=== PATIENT | male | born 1960 | race Caucasian/White ===

== ENCOUNTER 2020-04-21 17:28 | Inpatient (IN) | payer OTHER ==
[~2020-04-21] VITALS: Ht 172.7 cm; Wt 57.2 kg
[2020-04-21 17:41] VITALS: BP_SYST 105
--- NOTE | 2020-04-21 17:41 | NUR ---
Placed in room 04 . Placed on cardiac cath lab manager, blood pressure machine and pulse oximeter. To gown for exam. Side rails up.
--- NOTE | 2020-04-21 17:45 | NUR ---
Note jostintrini in ED - 04/21/20 at 1825 by AIDEWANiraj Pt bib EMS from home with c/o abdominal pain, n/v x2 days. Denies fever at this time. Currently resting in bed, will continue to monitor.
--- NOTE | 2020-04-21 17:50 | NUR ---
# 20 gauge angiocath placed to RAC. Use of asceptic technique. Opsite placed over site. Blood return noted. Blood for lab drawn from site. Flushed with 10 cc of normal saline. No evidence of infiltration noted. Patient tolerated well.
--- NOTE | 2020-04-21 17:50 | NUR ---
PT. BETHANY AAOx3 CC DIZZINESS AND SHORTNESS OF BREATH SINCE 08OOHRS BECAME WORSE SO HE CALLED 911 PT. STATES HE FEELS LIKE HE CANNOT CATCH HIS BREATH AND HAS POOR BALANCE SINCE AM PT. HAS NKDA WITH A HISTORY OF COLON CANCER. PT. IS ACTIVELY WORKING TO BREATH OTHERWISE PULSE OX IS 99% ON ROOM AIR AND LUNGS SOUND CLEAR WITH AUDIBLE EXPITORY WHEEZES.
[2020-04-21 18:23] LABS: CALCIUM 9.4 mg/dL (8.4-11.0); CREATININE 6.06 mg/dL (0.55-1.30)
[2020-04-21 18:29] LABS: ALBUMIN 3.5 g/dL (3.4-4.8); TOTAL BILIRUBIN 1.8 mg/dL (0.0-1.0)
[2020-04-21 18:37] LABS: POTASSIUM 6.2 mmol/L (3.5-5.1)
[2020-04-21 18:48] LABS: HEMOGLOBIN 12.9 g/dL (14.0-18.0); MEAN CORPUSCULAR VOLUME 97 fL (79.0-98.0); RED BLOOD CELL COUNT(AUTO) 4.22 MIL/uL (4.2-6.2); WHITE BLOOD COUNT (AUTO) 8.1 K/uL (4.8-10.8)
[2020-04-21 18:49] LABS: BASOPHILS % (AUTO) 0.1 % (0.0-2.0); LYMPHOCYTES % (AUTO) 7.7 % (20.5-51.5); MEAN CORPUSCULAR HEMOGLOBIN 31 pg (27-31); MEAN CORPUSCULAR HGB CONC 32 % (32-36); MONOCYTES % (AUTO) 14.4 % (1.7-9.3); NEUTROPHILS % (AUTO) 77.8 % (40.0-70.0); PLATELET COUNT (AUTO) 243 K/uL (130-430); RED CELL DISTRIBUTION WIDTH 32.5 % (9.0-15.0)
[2020-04-21 18:50] LABS: LYMPHOCYTES # (AUTO) 0.6 K/uL (1.0-5.5); MONOCYTES # (AUTO) 1.2 K/uL (0.0-1.0); NEUTROPHILS # (AUTO) 6.3 K/uL (1.8-7.7)
--- NOTE | 2020-04-21 19:02 | NUR ---
Care of patient endorsed to REYES Coates. Pt currently resting in bed, no distress noted.
--- NOTE | 2020-04-21 19:15 | NUR ---
Report given by Teresa CHAMBERS, continuation of care endoresed.
--- NOTE | 2020-04-21 19:20 | NUR ---
Upon auscultation pt has b/l crackles. RT called for tx.
[2020-04-21] MEDS ORDERED: FUROSEMIDE 40 MG/4 ML VIAL IVP ONE (19:45)
[2020-04-21] MEDS ORDERED: ALBUTEROL SULFATE 0.083% 2.5 MG/3 ML VIAL.NEB INH ONE (19:45)
[2020-04-21] MEDS ORDERED: DEXTROSE 50% JECT 50 ML DISP.SYRIN IVP ONE (19:45)
[2020-04-21] MEDS ORDERED: INSULIN Lispro 100 UNITS/ML VIAL (humaLOG) IV ONE (19:45)
--- NOTE | 2020-04-21 20:18 | NUR ---
5 UNITS INSULIN GIVEN IV PUSH WITH NORMAL SALINE PT. TOLERATED WELL
--- NOTE | 2020-04-21 21:05 | NUR ---
Tushar lozoya in ED - 04/21/20 at 2359 by [id number] BG 205. made aware.
--- NOTE | 2020-04-21 21:05 | NUR ---
BG 250. AWARE
[2020-04-21] MEDS ORDERED: NACL 0.9% 1,000 ML IV ONE (21:30)
[2020-04-21] MEDS ORDERED: cefTRIAXone 1 GM in D5W 50 ML IV ONE (22:00)
[2020-04-21] MEDS ORDERED: metroNIDAZOLE 500 mg/NS 100 ML IV ONE (22:00)
--- NOTE | 2020-04-21 22:00 | NUR ---
Patient transported to radiology via [facility] for ct scan, accompanied by Leeroy.
--- NOTE | 2020-04-21 22:20 | NUR ---
Pt back from CT. Stable.
[2020-04-21] MEDS ORDERED: cefTRIAXone 1 GM VIAL ONE (23:44)
[2020-04-22] VITALS (17 sets, daily range): BP systolic 59–139
[2020-04-22 01:11] LABS: ALANINE AMINOTRANSFERASE 33 U/L (12-78); ALBUMIN 2.9 g/dL (3.4-4.8); ANION GAP 21 (5-15); ASPARTATE AMINOTRANSFERASE 25 U/L (10-37); CALCIUM 8.7 mg/dL (8.4-11.0); CHLORIDE 114 mmol/L (98-107); CREATININE 6.12 mg/dL (0.55-1.30); GLUCOSE 182 mg/dL (70-99); LACTATE DEHYDROGENASE 221 U/L (85-227); POTASSIUM 5.3 mmol/L (3.5-5.1); SODIUM SERUM 140 mmol/L (136-145); TOTAL BILIRUBIN 1.6 mg/dL (0.0-1.0); UREA NITROGEN, BLOOD 57 mg/dL (8-21)
[2020-04-22 01:17] LABS: GFR AFRICAN AMERICAN 12 mL/min (>90)
--- NOTE | 2020-04-22 01:30 | NUR ---
Pt moved to hospital bed.
--- NOTE | 2020-04-22 01:46 | NUR ---
RECEIVED ADMIT ORDERS FROM DR. FOY.
--- NOTE | 2020-04-22 01:46 | NUR ---
Patient will be admitted to care of Dr Martinez. Admitted to ICU unit. Will go to room 127. Belongings list completed. Complete and up to date summary report printed. SBAR report to be given at bedside with opportunity for questions.
--- NOTE | 2020-04-22 01:52 | NUR ---
CRITICAL LAB REPORTING - LACTIC ACID 7.4. AWARE.
[2020-04-22] MEDS ORDERED: MORPHINE 2 MG/ML INJ. SYRINGE IVP PRN (02:00)
[2020-04-22] MEDS ORDERED: ONDANSETRON HCL 4 MG/2 ML VIAL IVP PRN (02:00)
--- NOTE | 2020-04-22 02:07 | NUR ---
RECEIVED ORDERS FROM DR. MCCALL, NEPHROLOGY.
--- NOTE | 2020-04-22 02:10 | NUR ---
# 16 FR Kay catheter with use of sterile technique. Immediate return of 30 cc yellow urine noted. Bedside drainage bag placed below level of bladder. Urine sample collected and sent to lab. Pt tolerated procedure well.
[2020-04-22] MEDS ORDERED: SODIUM POLYSTYRENE SULFONATE 15 GM/60 ML UDBTL PO ONE (02:15)
[2020-04-22] MEDS ORDERED: SODIUM BICARBONATE 8.4% JECT 50 MEQ/50 ML SYRINGE IVP ONE (02:15)
--- NOTE | 2020-04-22 02:18 | NUR ---
CRITICAL LAB REPORTING - LACTIC 7.7. AWARE.
[2020-04-22] MEDS ORDERED: SODIUM BICARBONATE 8.4% JECT 50 MEQ/50 ML SYRINGE ONE (02:20)
--- NOTE | 2020-04-22 02:20 | NUR ---
# 20 gauge angiocath placed to R bicep. Use of asceptic technique. Opsite placed over site. Blood return noted. Flushed with 10 cc of normal saline. No evidence of infiltration noted. Patient tolerated well.
[2020-04-22] MEDS ORDERED: SODIUM BICARBONATE 8.4% VIAL 50 MEQ/50 ML VIAL ONE (02:21)
--- NOTE | 2020-04-22 02:23 | NUR ---
CALLED TO INFORM ICU STAFF OF ADMISSION TO ICU. PATIENT WILL BE HELD IN ER FOR TIME BEING.
[2020-04-22] MEDS: SODIUM BICARBONATE 8.4% JECT 100 MEQ in D5W 1,000 ML IVP SCH ×6 (03:00→21:09)
[2020-04-22 03:33] LABS: THYROID STIMULATING HORMONE 0.29 uIu/mL (0.34-4.82)
[2020-04-22 03:37] LABS: BILIRUBIN,URINE NEGATIVE (NEGATIVE); CLARITY/URINE CLEAR (CLEAR); COLOR,URINE YELLOW (YELLOW); GLUCOSE,URINE NEGATIVE (NEGATIVE); KETONES,URINE NEGATIVE (NEGATIVE); LEUKOCYTE ESTERASE ,URINE NEGATIVE (NEGATIVE); NITRITE, URINE NEGATIVE (NEGATIVE); PROTEIN URINE 2+ (NEGATIVE); UROBILINOGEN,URINE 0.2 (0.2-1.0)
[2020-04-22 03:46] LABS: BLOOD, URINE TRACE (NEGATIVE)
[2020-04-22 03:47] LABS: BACTERIA,URINE MODERATE /HPF (None Seen); WBC,URINE 0-3 /HPF (0-3)
--- NOTE | 2020-04-22 04:00 | NUR ---
Pt is becoing hypotenive Dr Aguilar aware. Levophed will be intiated.
[2020-04-22] MEDS ORDERED: NOREPINEPHRINE 4 MG/4 ML VIAL IV ONE (04:08)
[2020-04-22] MEDS ORDERED: VANCOMYCIN HCL 500 MG in NS 100 ML IV ONE (04:15)
[2020-04-22] MEDS ORDERED: VANCOMYCIN HCL 1 GM/NS PREMIX 250 ML IV ONE (04:15)
[2020-04-22] MEDS ORDERED: PIPERACILLIN/TAZO 3.375/DEX-IS 50 ML IV ONE (04:15)
--- NOTE | 2020-04-22 04:20 | NUR ---
Levophed started at dose 0.10 mcg. Will continue to monitor BP.
[2020-04-22] MEDS: NOREPINEPHRINE BITARTRATE 4 MG in NS 246 ML IV PRN ×3 (04:25→19:48)
[2020-04-22] MEDS: NACL 0.9% 1,000 ML IV SCH ×3 (04:45→19:43)
[2020-04-22] MEDS ORDERED: PIPERACILLIN/TAZOBACTAM 3.375 GM/VIAL (ZOSYN) IV ONE (05:32)
--- NOTE | 2020-04-22 05:40 | NUR ---
Dr Aguilar spoke to Dr Diaz to discuss Kenton catheter placement. Dr Diaz expected at ER at 0730.
--- NOTE | 2020-04-22 06:02 | NUR ---
Levophed titrated to 7.0763 mcg.
[2020-04-22] MEDS ORDERED: VANCOMYCIN HCL 500 MG/VIAL IV ONE (06:15)
--- NOTE | 2020-04-22 06:44 | NUR ---
Sodium bicarb 100 MEQ will be endorsed by ICU patient.
--- NOTE | 2020-04-22 07:00 | NUR ---
Vancomycin order endorsed to TECHNICAL SOLUTIONS CONSULTANT
[2020-04-22 07:12] LABS: CALCIUM 8.2 mg/dL (8.4-11.0); CREATININE 6.47 mg/dL (0.55-1.30); POTASSIUM 3.7 mmol/L (3.5-5.1)
[2020-04-22 07:27] LABS: URIC ACID 6.2 mg/dL (2.4-7.0)
[2020-04-22 07:28] LABS: FREE T4 (FREE THYROXINE) 0.8 ng/dL (0.6-1.6)
--- NOTE | 2020-04-22 07:30 | NUR ---
ADMISSION. RECEIVED PT IN OVERFLOW ROOM, 127-B. PT VERBALLY RESPONSIVE TO SIMPLE COMMANDS, GENERALIZED WEAKNESS NOTED, IV IN RIGHT UPPER ARM AND SALINE LOCK IN RIGHT A/C, LEVOPHED DRIP AT 8 MCG/MIN, HOLM CATHETER INTACT WITH SCANTY URINE IN THE TUBING NOTED.
--- NOTE | 2020-04-22 08:00 | NUR ---
IV DRIPS. IV PUMP REPROGRAMMED INTO LEVOPHED DRIP AT 0.03 MCG/KG/MIN AND TITRATED PRN.
[2020-04-22] MEDS ORDERED: HEPARIN SODIUM,PORCINE 5,000 UNITS/ML VIAL ONE ×2 (08:17→21:08)
--- NOTE | 2020-04-22 08:30 | NUR ---
TIME OUT DR BARRAZA AT BEDSIDE, PROCEDURE EXPLAINED TO PT, IDENTIFIED PT VIA ID BAND AND BY VERBAL STATEMENT.
[2020-04-22 08:31] LABS: INR 1.8 (0.80-1.20); PROTHROMBIN TIME 17.9 SECS (9.5-12.5)
--- NOTE | 2020-04-22 08:50 | NUR ---
Dr. Pitts at bedside for Kenton Catheter placement.
--- NOTE | 2020-04-22 09:00 | NUR ---
HD ACCESS. NEW DIALYSIS ACCES IN RIGHT SUBCLAVIANJUAN SIZE 12.5 CATHETER. Addendum: 04/22/20 at 1506 by Noy Branch RN IN RIGHT JUGULAR, NOT IN SUBCLAVIAN
--- NOTE | 2020-04-22 09:15 | NUR ---
Called Dr. Grider with a consult, spoke with Shirley from doctors office
--- NOTE | 2020-04-22 10:56 | NUR ---
G.I. CONSULT. DR ROGERS AT BEDSIDE EXAMINING PT.
--- NOTE | 2020-04-22 11:30 | NUR ---
CONSENT. BROUGHT PAPER FOR PT TO SIGN, PT TOO WEAK TO HOLD HIS PEN, HE AGREED ON DIALYSIS TREATMENT, ANOTHER RN AT BEDSIDE TO VERIFY CONVERSATION.
--- NOTE | 2020-04-22 12:10 | NUR ---
FAMILY. PT'S TAVO CALLED, UPDATED HER ON PT'S STATUS AND HIS TREATMENT, DIALYSIS AND IV MEDS.
--- NOTE | 2020-04-22 13:40 | NUR ---
TO ROOM 6 TRANSFERRED PT TO ICU 6 WITH ALL HIS PERSONAL BELONGINGS.
--- NOTE | 2020-04-22 14:02 | NUR ---
Spoke w/ traffic rate analyst at [facility] is authorized until 04/23-requested clinical info in the AM
[2020-04-22] MEDS ORDERED: cefTRIAXone 1 GM in D5W 50 ML IV SCH (15:00)
[2020-04-22 15:45] LABS: AMYLASE 629 U/L (0-100)
[2020-04-22 16:31] LABS: LIPASE 2405 U/L (73-393)
[2020-04-22] MEDS ORDERED: PIPERACILLIN/TAZO 2.25G/DEX-IS 50 ML IV ONE (17:30)
--- NOTE | 2020-04-22 19:30 | NUR ---
OPENING NOTE Received SBAR report from off coming RN for continuity of care. Pt laying in bed asleep, no s/s of acute distress noted. Pt opens eyes to verbal stimuli and can follow simple commands. Pt lethargic. Pt on RA. web site project manager at bedside providing HD. Levophed gtt infusing @ 0.34 mcg/kg/min, NS @ 125 ml/hr, 100 mEq Na bicarb @ 100 ml/hr. R) IJ vivek cath in place. Kay catheter in place and draining to gravity. Turned and repositioned pt. Bed locked and in lowest position, safety precautions in place.
[2020-04-22] MEDS ORDERED: ALBUMIN HUMAN 25% 200 ML IV ONE ×2 (20:00→20:20)
[2020-04-23] VITALS (24 sets, daily range): BP systolic 93–153
[2020-04-23] MEDS: PIPERACILLIN/TAZO 2.25G/DEX-IS 50 ML IV SCH ×3 (02:00→18:02)
--- NOTE | 2020-04-23 03:00 | NUR ---
Pt remains asleep, opens eyes to verbal and tactile stimuli. Pt continues to be lethargic. Pt continues to remain on RA. Pt had a large loose BM, provided enoc care, partial bed bath and full linen change-pt tolerated well. Bed locked and in lowest position, safety precautions in place.
[2020-04-23 06:12] LABS: ALBUMIN 2.9 g/dL (3.4-4.8); CREATININE 3.54 mg/dL (0.55-1.30); PHOSPHORUS 3.5 mg/dL (2.7-4.5); TOTAL BILIRUBIN 3.5 mg/dL (0.0-1.0)
[2020-04-23] MEDS: NACL 0.9% 1,000 ML IV SCH ×3 (06:30→20:50)
[2020-04-23 06:37] LABS: BASOPHILS % (AUTO) 0.1 % (0.0-2.0); HEMATOCRIT 26.7 % (36-54); HEMOGLOBIN 8.9 g/dL (14.0-18.0); LYMPHOCYTES # (AUTO) 0.6 K/uL (1.0-5.5); LYMPHOCYTES % (AUTO) 13.5 % (20.5-51.5); MEAN CORPUSCULAR HEMOGLOBIN 30 pg (27-31); MEAN CORPUSCULAR HGB CONC 33 % (32-36); MEAN CORPUSCULAR VOLUME 90 fL (79.0-98.0); MONOCYTES # (AUTO) 0.6 K/uL (0.0-1.0); MONOCYTES % (AUTO) 13.3 % (1.7-9.3); NEUTROPHILS # (AUTO) 3.3 K/uL (1.8-7.7); NEUTROPHILS % (AUTO) 73.1 % (40.0-70.0); PLATELET COUNT (AUTO) 72 K/uL (130-430); RED BLOOD CELL COUNT(AUTO) 2.97 MIL/uL (4.2-6.2); RED CELL DISTRIBUTION WIDTH 33.7 % (9.0-15.0); WHITE BLOOD COUNT (AUTO) 4.5 K/uL (4.8-10.8)
[2020-04-23 07:15] LABS: CALCIUM 7.4 mg/dL (8.4-11.0)
[2020-04-23 07:18] LABS: POTASSIUM 2.6 mmol/L (3.5-5.1)
--- NOTE | 2020-04-23 07:25 | NUR ---
CLOSING NOTE Endorsed SBAR report to oncoming RN for continuity of care.
--- NOTE | 2020-04-23 07:30 | NUR ---
AM ASSESSMENT. PT ALERT, COTTON FACTOR AT BEDSIDE, PROBING PT'S ABDOMEN. KITCHEN AND BATH DESIGNER ON SINUS TACHYCARDIA, LEVOPHED DRIP INCREASED TO 0.25 MCG/KG/MIN, BP 83/50.CONTINUE TO MONITOR PT.
--- NOTE | 2020-04-23 08:30 | NUR ---
HYGIENE. PT COMPLETED THE ULTRASOUND. PT INCONTINENT OF BOWEL, DARK COLOR LOOSE STOOL, SOAPY WIPES USED TO PERINEAL AREA AND RINSED WITH WET WASH CLOTHS THEN PAT DRY.
[2020-04-23] MEDS ORDERED: POTASSIUM CHLORIDE 40 MEQ in NS 500 ML IV ONE (09:00)
[2020-04-23] MEDS ORDERED: POTASSIUM CHLORIDE 40 MEQ in NS 250 ML IV ONE (09:00)
--- NOTE | 2020-04-23 10:23 | NUR ---
RUDY RECEIVED A CALL FROM RETORT SETTER, UPDATE GIVEN ON HIS STATUS, HIS LAB TESTS. SHE STATED THAT THEY ARE NOT TAKING HIM TO [facility] TODAY.
--- NOTE | 2020-04-23 13:45 | NUR ---
IV DRIPS. LEVOPHED DRIP OFF AT THIS HOUR, BLOOD PRESSURE 115/65, 111/64.
--- NOTE | 2020-04-23 14:36 | NUR ---
Per Manjit MYLES-pt not stable for transfer-on Levophed gtt-will authorize until 04/24
--- NOTE | 2020-04-23 18:00 | NUR ---
HYGIENE. PT HAD LOOSE STOOL, LARGE AMOUNT, HYGIENE PROVIDED, ALL LINEN CHANGED, MADE PT CLEAN AND DRY.
[2020-04-23] MEDS ORDERED: MAGNESIUM SULFATE 3 GM in D5W 100 ML IV SCH (18:15)
--- NOTE | 2020-04-23 19:25 | NUR ---
OPENING NOTE Received SBAR report from off coming RN for continuity of care. Pt laying in bed alert and eating dinner. No s/s of acute distress noted. NS infusing @ 100 ml/hr. Kay catheter in place, draining to gravity. Bed locked and in lowest position, safety precautions in place. Call light within reach.
--- NOTE | 2020-04-23 21:30 | NUR ---
Pt laying in bed, pt A/O x 3 and cooperative. Pt tolerated dinner (full liquid diet) well, no c/o pain, nausea or discomfort. NS infusing @ 100 ml/hr. Kay catheter in place, draining to gravity. Pt having loose BMs, provided per care and assistance. Call light within reach. Bed locked and in lowest position, safety precautions in place.
[2020-04-23] MEDS ORDERED: MAGNESIUM SULFATE 1 GM/2 ML VIAL ONE (21:40)
[2020-04-23] MEDS ORDERED: HEPARIN SODIUM,PORCINE 5,000 UNITS/ML VIAL ONE (21:56)
[2020-04-23] MEDS: HEPARIN SODIUM,PORCINE 5,000 UNITS/ML VIAL SUBCUT SCH (22:00)
[2020-04-24] VITALS (20 sets, daily range): BP systolic 119–162
[2020-04-24] MEDS: PIPERACILLIN/TAZO 2.25G/DEX-IS 50 ML IV SCH ×3 (01:52→20:25)
--- NOTE | 2020-04-24 03:30 | NUR ---
Pt laying in bed, no s/s of acute distress noted. Pt having multiple loose BMs throughout night, stool sample obtained for C diff. Providing enoc care and guajardo care as needed. Call light within reach. Bed locked and in lowest position, safety precautions in place.
[2020-04-24 06:48] LABS: EOSINOPHILS % (AUTO) 0.1 % (0.0-4.0); HEMATOCRIT 25.5 % (36-54); HEMOGLOBIN 8.5 g/dL (14.0-18.0); LYMPHOCYTES # (AUTO) 0.7 K/uL (1.0-5.5); LYMPHOCYTES % (AUTO) 15.2 % (20.5-51.5); MEAN CORPUSCULAR HEMOGLOBIN 31 pg (27-31); MEAN CORPUSCULAR HGB CONC 33 % (32-36); MEAN CORPUSCULAR VOLUME 92 fL (79.0-98.0); MONOCYTES # (AUTO) 0.8 K/uL (0.0-1.0); MONOCYTES % (AUTO) 17.3 % (1.7-9.3); NEUTROPHILS # (AUTO) 3.3 K/uL (1.8-7.7); PLATELET COUNT (AUTO) 52 K/uL (130-430); RED BLOOD CELL COUNT(AUTO) 2.77 MIL/uL (4.2-6.2); WHITE BLOOD COUNT (AUTO) 4.8 K/uL (4.8-10.8)
[2020-04-24] MEDS: NACL 0.9% 1,000 ML IV SCH (06:50)
[2020-04-24 07:06] LABS: CALCIUM 7.7 mg/dL (8.4-11.0); CREATININE 3.32 mg/dL (0.55-1.30)
--- NOTE | 2020-04-24 07:30 | NUR ---
CLOSING NOTE Endorsed SBAR report to oncoming RN for continuity of care.
--- NOTE | 2020-04-24 07:35 | NUR ---
Opening Note Received bedside report from endorsing RN for continuation of care. Received patient resting in bed, no signs or symptoms of acute distress noted. Bed locked in lowest position, bed alarm on, and call light within reach. All safety precautions in place.
--- NOTE | 2020-04-24 08:52 | NUR ---
Spoke to Dr. Chamberlain regarding critical K 2.0, new orders made.
--- NOTE | 2020-04-24 08:54 | NUR ---
Page out to Dr. Grider for critical values, spoke with exchange.
--- NOTE | 2020-04-24 09:02 | NUR ---
Dr. Grider at bedside examining patient. New orders received to advance diet.
[2020-04-24] MEDS ORDERED: HEPARIN SODIUM,PORCINE 5,000 UNITS/ML VIAL ONE (09:09)
[2020-04-24] MEDS: HEPARIN SODIUM,PORCINE 5,000 UNITS/ML VIAL SUBCUT SCH (09:12)
--- NOTE | 2020-04-24 09:48 | NUR ---
BM Patient had large loose BM, pericare done and bed linens changed. Patient repositioned, all needs met, call light within reach.
[2020-04-24] MEDS ORDERED: POTASSIUM CHLORIDE 40 MEQ, LIDOCAINE JECT 2% PF 100 MG 50 MG in NS 250 ML IV ONE (10:00)
--- NOTE | 2020-04-24 10:02 | NUR ---
Transfer of Care Endorsed bedside report to RN using SBAR approach for continuation of care.
--- NOTE | 2020-04-24 10:04 | NUR ---
[place] of Care Received report on pt from endorsing RN. Pt with liquid BM, enoc care and linen change done.
--- NOTE | 2020-04-24 10:24 | NUR ---
Nutrition Update Zhou scale 14 noted. Pt admitted for ARF Diet: renal, soft BMI: 19 kg/m2 RD to follow per nutrition care standards.
[2020-04-24 10:53] LABS: RED CELL DISTRIBUTION WIDTH 33.3 % (9.0-15.0)
[2020-04-24 10:54] LABS: NEUTROPHILS % (AUTO) 67.4 % (40.0-70.0)
[2020-04-24 13:18] LABS: CREATININE, URINE 145.9 mg/dL; MICROALBUMIN URINE RANDOM 627.2 ug/ml (NOT ESTABLISHED)
[2020-04-24 13:19] LABS: MICROALBUMIN/CREAT RATIO, UR 430 HIGH MG/G CRE (0.0-30.0)
--- NOTE | 2020-04-24 15:13 | NUR ---
Case mgt: S/W ICU nurse Kari--pt is off Levophed with stable BP and is to receive hemodialysis around 6pm tonight. I have requested Kari to ask MD for orders to downgrade to telemetry and transfer to contracted hospital and level of care if MD agrees. I s/w with Veronica at [place] [facility] [phone], informed her pt is off Levophed and that I am having nurse request possible downgrade to tele and transfer to contracted hospital order from MD. Veroncia will have Sandra assigned [facility], call me back. TRI RN
[2020-04-24] MEDS ORDERED: 0.45% NS 500 ML IV ONE (15:15)
--- NOTE | 2020-04-24 15:23 | NUR ---
Dietitian Recommendations * Recommend renal, soft (low fiber/bland) diet w/ Banatrol (banana flakes) ALIA [address] RD Please refer to Nutrition Assessment for details. Addendum: 04/24/20 at [address] Amended: Links added.
[2020-04-24 15:34] LABS: CALCIUM 7.8 mg/dL (8.4-11.0); CREATININE 3.3 mg/dL (0.55-1.30)
[2020-04-24 15:41] LABS: POTASSIUM 2.3 mmol/L (3.5-5.1)
--- NOTE | 2020-04-24 15:55 | NUR ---
Page out to Dr. Chamberlain for critical potassium 2.3. Spoke with exchange.
[2020-04-24] MEDS ORDERED: KCL 20 mEq in 100 mL (PREMIX) 100 ML IV ONE (16:15)
[2020-04-24] MEDS: 0.45% NACL 1,000 ML IV SCH (16:25)
--- NOTE | 2020-04-24 16:25 | NUR ---
Patient receiving hemodialysis and KRider 20 mEq IVPB per MD order. Dialysis nurse at bedside.
--- NOTE | 2020-04-24 17:41 | NUR ---
Spoke with Dr. Smith regarding pt condition, states okay to transfer to telemetry. Also informed Dr. Smith regarding plans to possibly transfer to [place], Dr. Smith states okay to transfer to telemetry level of care.
--- NOTE | 2020-04-24 19:30 | NUR ---
Dialysis complete, 250 ml out. Pt tolerated well.
--- NOTE | 2020-04-24 20:00 | NUR ---
Transfer to Telemetry 101 A All belongings sent with pt. Tolerated well. No other complaints at this time. Endorsed plan of care to receiving RN. Addendum: 04/24/20 at 2033 by Kari Ortiz RN Zosyn IVPB given late d/t pt being on dialysis.
--- NOTE | 2020-04-24 20:00 | NUR ---
TRANSFER FROM ICU NOTE: Received patient from ICU via gurney. Patient admitted with diagnosis of Acute Renal Failure . Patient is awake, alert, oriented X 4. Patient oriented to hospital room, call light, toileting, pain management and safety-teach back done. Patient informed that Sean will be his nurse and that their room number is 101-A. Bed locked and in the the lowest position. Call light within reach.
--- NOTE | 2020-04-24 21:45 | NUR ---
MEDICATION ADMINISTRATION: Patient is in bed with no s/s of distress or discomfort. Administered Heparin as ordered, pt tolerated well. Bed is in the lowest position and call light within reach. Will continue to monitor.
[2020-04-24] MEDS ORDERED: HEPARIN SODIUM,PORCINE 5,000 UNITS/ML VIAL SUBCUT SCH (22:00)
[2020-04-25] VITALS: BP_SYST 139
--- NOTE | 2020-04-25 | NUR ---
RN ROUNDS: Patient is laying in bed and appears to be asleep. He is in stable condition. Will continue to monitor.
--- NOTE | 2020-04-25 01:20 | NUR ---
RN ROUNDS: Patient is laying in bed with no s/s of distress or discomfort. I administered Zosyn as ordered, pt tolerating well. Noticed patient's dressing to vivek cath as fresh bloody show. I applied a pressure dressing and will monitor for more bleeding. Patient does not have any c/o of pain or discomfort.
[2020-04-25] MEDS: PIPERACILLIN/TAZO 2.25G/DEX-IS 50 ML IV SCH ×2 (01:21→09:29)
--- NOTE | 2020-04-25 03:00 | NUR ---
RN ROUNDS: Patient is laying in bed with no s/s of distress or discomfort. He appears to be asleep. I checked on Kenton cath pressure dressing. It is currently dry with no evidence of further bleeding. Will continue to monitor.
--- NOTE | 2020-04-25 05:00 | NUR ---
RN ROUNDS: Patient is resting in bed and appears to be asleep and in stable condition. Will continue to monitor patient.
[2020-04-25] MEDS: 0.45% NACL 1,000 ML IV SCH (06:50)
[2020-04-25 07:12] LABS: CALCIUM 7.7 mg/dL (8.4-11.0); CREATININE 1.84 mg/dL (0.55-1.30)
--- NOTE | 2020-04-25 07:15 | NUR ---
CLOSING NOTES: Patient is in bed with no s/s of distress or discomfort. There is bleeding at vivek site. Changed pressure dressing and will endorse to dayshift nurse. Patient is otherwise alert and oriented and in stable condition. All needs were met throughout shift. Bed is in the lowest position and call light within reach.
[2020-04-25 07:25] LABS: POTASSIUM 2.6 mmol/L (3.5-5.1)
[2020-04-25 07:35] LABS: EOSINOPHILS % (AUTO) 0.3 % (0.0-4.0); HEMATOCRIT 25.2 % (36-54); HEMOGLOBIN 8.2 g/dL (14.0-18.0); LYMPHOCYTES # (AUTO) 1.1 K/uL (1.0-5.5); LYMPHOCYTES % (AUTO) 20.2 % (20.5-51.5); MEAN CORPUSCULAR HEMOGLOBIN 30 pg (27-31); MEAN CORPUSCULAR HGB CONC 33 % (32-36); MEAN CORPUSCULAR VOLUME 93 fL (79.0-98.0); MONOCYTES # (AUTO) 0.7 K/uL (0.0-1.0); MONOCYTES % (AUTO) 12.3 % (1.7-9.3); NEUTROPHILS # (AUTO) 3.6 K/uL (1.8-7.7); NEUTROPHILS % (AUTO) 67.2 % (40.0-70.0); RED BLOOD CELL COUNT(AUTO) 2.72 MIL/uL (4.2-6.2); RED CELL DISTRIBUTION WIDTH 33.6 % (9.0-15.0); WHITE BLOOD COUNT (AUTO) 5.4 K/uL (4.8-10.8)
--- NOTE | 2020-04-25 07:50 | NUR ---
OPENING NOTES, RECEIVED PT IN BED, PT IS AAOX4, DENIES PAIN, NO SOB, NO RESP DISTRESS. IV FLUIDS INFUSING. NO S/S OF INFILTRATION ON THE IV SITE. NOTED THAT PT'S R. JUGULAR MATTIE SITE IV IS BLEEDING. NOTED OLD AND FRESH BLOOD. ENCOURAGED PT TO KEEP FROM BEARING DOWN AND MOVING TO HELP STOP BLEEDING. SITE WAS REINFORCE WITH STERILE GAUZE AND TAPED. WILL CONT TO MONITOR.
--- NOTE | 2020-04-25 08:30 | NUR ---
OLD AND BLOOD SOAKED DRESSING REMOVE FROM RIGHT JUGULAR, REINFORCE WITH STERILE GAUZE AND TAPED TO SKIN AROUND THE THE NECK. WILL CONT TO MONITOR.
[2020-04-25] MEDS ORDERED: POTASSIUM CHLORIDE 40 MEQ in 0.45% NS 250 ML IV ONE (09:15)
--- NOTE | 2020-04-25 09:34 | NUR ---
PT RESTING IN BED, NO C/O PAIN. ANTIBIOTICS GIVEN.
--- NOTE | 2020-04-25 10:00 | NUR ---
BLEEDING FROM MATTIE SITE STOPPED.
--- NOTE | 2020-04-25 11:07 | NUR ---
PT CLEANSED AFTER STOOL INCONTINENCE X3. HOLM CATH SECURED TO R. THIGH. K-RIDER STARTED.
[2020-04-25 11:18] LABS: PLATELET COUNT (AUTO) 38 K/uL (130-430)
--- NOTE | 2020-04-25 11:54 | NUR ---
DR ASTORGA IS HERE AND SEEN PT, MADE THAT PT HAS BEEN HAVING WATERY STOOL. MD SAID HE WILL PLACE SOME ORDERS.
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
[2020-04-25 12:09] VITALS: BP_SYST 143
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
[2020-04-25] MEDS ORDERED: cefTRIAXone 1 GM in D5W 50 ML IV SCH (15:00)
[2020-04-25 16:03] VITALS: BP_SYST 141
[2020-04-25] MEDS: CHOLESTYRAMINE/SUCROSE 4 GM/PACKET PO SCH ×2 (16:07→20:43)
--- NOTE | 2020-04-25 17:00 | NUR ---
PT ASSISTED WITH BEDPAN. PT HAD A LOT ( ABOUT 8X ) OF DIARRHEA EPISODES TODAY. MDS ARE AWARE. KRIDER GIVEN FOR K LEVEL OF 2.8.
--- NOTE | 2020-04-25 18:50 | NUR ---
CLOSING NOTES PT HAS BEEN STABLE THE WHOLE SHIFT, VITALS WNL, NO FEVER, NO SOB. BLEEDING FROM DIALYSIS MATTIE CATH STOPPED. NO C/O OF PAIN, K. RIDER WAS GIVEN. PT HAD DIARRHEA THE WHOLE SHIFT. PT GIVEN MEDICATION AND BANANATROL FOR DIARRHEA. STILL WAITING FOR A ROOM IN [place]. PER COINING PRESS OPERATOR, ALL PAPER WORKS NEEDED BY [place] WERE PROVIDED BY HER. ALL NEEDS ATTENDED TO AND MET. WILL ENDORSE TO NIGHT NURSE.
--- NOTE | 2020-04-25 19:15 | NUR ---
OPENING NOTE PATIENT IN BED, AWAKE, AOX4, NO S/S OF ACUTE DISTRESS NOTED. BREATHING EVEN AND UNLABORED. IVF INFUSING WELL. IV SITE IS PATENT, NO SIGNS OF INFILTRATION OR INFECTION NOTED. PATIENT DENIES PAIN. CALL LIGHT WITH PATIENT. BED ALARM ON. HOLM ATTACHED SECURE AND DRAINING BY GRAVITY. WILL CONTINUE TO MONITOR .
[2020-04-25] MEDS ORDERED: POTASSIUM CHLORIDE 10 MEQ in 0.45% NACL 1,000 ML IV SCH (19:30)
[2020-04-25] MEDS ORDERED: KCL 20 mEq in 100 mL (PREMIX) 100 ML IV ONE (20:04)
--- NOTE | 2020-04-25 20:35 | NUR ---
José Miguel Chamberlain s/w Moni
--- NOTE | 2020-04-25 21:00 | NUR ---
[facility] PATIENT CLEANED, HAD BM, PATIENT TOLERATED WELL. ALL NEEDS MET. BED ALARM ON. CALL LIGHT WITH PATIENT. WILL CONTINUE TO MONITOR.
[2020-04-25 22:11] VITALS: BP_SYST 140
--- NOTE | 2020-04-25 22:17 | NUR ---
REPORT TO TAMPA/CALL FAMILY REPORT GIVEN TO REYES WISDOM. PATIENT STATED THAT HE WILL CALL HIS FAMILY HIMSELF.
--- NOTE | 2020-04-25 22:44 | NUR ---
DISCHARGE REPORT GIVEN TO EMT OF [facility], PATIENT IN BED, NO S/S OF ACUTE DISTRESS NOTED. BREATHING EVEN AND UNLABORED. IV SITE ON LEFT FOREARM PATENT, NO SIGNS OF INFILTRATION OR INFECTION NOTED. MATTIE CATH ON IJ, DRESSING IN PLACE, NO SIGNS OF ACTIVE BLEEDING. HOLM ATTACHED, SECURED, AND DRAINING BY GRAVITY. ALL NEEDS MET. PATIENT ESCORTED OUT OF UNIT VIA GURNEY.
[2020-04-27 01:07] LABS: HEPATITIS A AB, IgM Negative (Negative); HEPATITIS B CORE AB, IgM Negative (Negative); HEPATITIS B SURFACE AG Negative (Negative)
== END 2020-04-25 22:44 | disposition short-term general hospital (02) | DRG 682 ==
LOC: SED 17:28 → SIC 04-22 01:47 → STU 04-24 20:22
PROVIDERS: ADMIT Internal Medicine; ATTEND Internal Medicine
PROC: 02HV33Z Insertion of Infusion Device into Superior Vena Cava, Percutaneous Approach (ICD-10-PCS; principal; 2020-04-22)
PROC: B548ZZA Ultrasonography of Superior Vena Cava, Guidance (ICD-10-PCS; 2020-04-22)
PROC: 5A1D70Z Performance of Urinary Filtration, Intermittent, Less than 6 Hours Per Day (ICD-10-PCS; 2020-04-22)
PROC: 5A1D70Z Performance of Urinary Filtration, Intermittent, Less than 6 Hours Per Day (ICD-10-PCS; 2020-04-24)
DX: N17.9 Acute kidney failure, unspecified (principal); E43 Unspecified severe protein-calorie malnutrition; G92 Toxic encephalopathy; K85.90 Acute pancreatitis without necrosis or infection, unspecified; E87.2 Acidosis; K92.2 Gastrointestinal hemorrhage, unspecified; Z68.1 Body mass index [BMI] 19.9 or less, adult; N39.0 Urinary tract infection, site not specified; E87.0 Hyperosmolality and hypernatremia; E86.0 Dehydration; E87.6 Hypokalemia; E87.5 Hyperkalemia; I95.9 Hypotension, unspecified; N18.9 Chronic kidney disease, unspecified; D69.6 Thrombocytopenia, unspecified; Z20.828 Contact with and (suspected) exposure to other viral communicable diseases; Z85.038 Personal history of other malignant neoplasm of large intestine; Z90.49 Acquired absence of other specified parts of digestive tract; Z92.21 Personal history of antineoplastic chemotherapy
CPT/HCPCS: 36415; 36600; 71045; 74018; 76376; 76700-TC; 76770; 80048; 80053; 80061; 80074; 81000-TC; 82043; 82140-TC; 82150-TC; 82378; 82550-TC; 82570; 82803-TC; 83605; 83615-TC; 83690-TC; 83735-TC; 83880; 84100-TC; 84132-TC; 84302-TC; 84439; 84443-TC; 84484; 84550-TC; 85025; 85610-TC; 85730-TC; 86022; 86886; 86900; 86901; 87040-TC; 87081; 87086; 87230-TC; 93005; 94640; 96365; 96367; 96375; 99285; G0378; J0696; J1644; J1940; J2543; J3370; J3475; J3480; J3490; J7050; J7060; J7613; P9046